=== PATIENT | female | born 2000 | race Hispanic/Latino ===

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

== ENCOUNTER 2019-01-18 20:41 | Observation (INO) | payer MEDICAID ==
[~2019-01-18] VITALS: Ht 157.5 cm; Wt 76.7 kg
[2019-01-18 21:36] LABS: APPEARANCE,URINE Clear (CLEAR); BILIRUBIN,URINE Negative (NEGATIVE); COLOR,URINE Yellow (YELLOW); GLUCOSE, URINE (UA) Negative (NEGATIVE); KETONES,URINE Negative (NEGATIVE); LEUKOCYTE ESTERASE ,URINE Small (NEGATIVE); NITRATE,URINE Negative (NEGATIVE); OCCULT BLOOD,URINE Negative (NEGATIVE); PH,URINE 6.5 (5.0-8.0); PROTEIN,URINE Negative (NEGATIVE); UROBILINOGEN,URINE 0.2 mg/dL (0.2-1.0)
[2019-01-18 21:45] LABS: BACTERIA,URINE Few /HPF (None Seen); RBC,URINE 0-1 /HPF (0-1); SQUAMOUS EPITHELIAL CELL,UR Few /HPF (0-2)
[2019-01-18 21:53] VITALS: BP 105/57
[2019-01-18] MEDS ORDERED: IRON-23 PO (21:56)
[2019-01-18] MEDS ORDERED: PREN1TAB26 PO (21:56)
== END 2019-01-18 22:20 | disposition home or self-care (01) ==
LOC: EDH 20:41 → LDH 20:42
PROVIDERS: ADMIT Obstetrics & Gynecology; ATTEND Obstetrics & Gynecology
DX: O26.893 Other specified pregnancy related conditions, third trimester (principal); R10.30 Lower abdominal pain, unspecified; Z3A.37 37 weeks gestation of pregnancy
CPT/HCPCS: 81001; 99284; G0378 ×2

== ENCOUNTER 2019-01-28 19:03 | Observation (INO) | payer MEDICAID ==
[~2019-01-28] VITALS: Ht 157.5 cm; Wt 78.9 kg
[~2019-01-28 19:03] MED LIST changes: +IRON-23 PO; +PREN1TAB26 PO
[2019-01-28] MEDS ORDERED: LACTATED RINGERS 1000ML 1,000 ML IV SCH (19:15)
[2019-01-28 19:51] LABS: APPEARANCE,URINE Clear (CLEAR); BILIRUBIN,URINE Negative (NEGATIVE); COLOR,URINE Yellow (YELLOW); GLUCOSE, URINE (UA) Negative (NEGATIVE); KETONES,URINE Negative (NEGATIVE); LEUKOCYTE ESTERASE ,URINE Moderate (NEGATIVE); NITRATE,URINE Negative (NEGATIVE); OCCULT BLOOD,URINE Negative (NEGATIVE); PH,URINE 6.5 (5.0-8.0); PROTEIN,URINE Trace mg/dL (NEGATIVE)
[2019-01-28 19:58] LABS: RBC,URINE 0-1 /HPF (0-1)
[2019-01-28 19:59] LABS: BACTERIA,URINE Few /HPF (None Seen); SQUAMOUS EPITHELIAL CELL,UR Moderate /HPF (0-2)
[2019-01-28 20:00] LABS: MUCUS,URINE Few LPF (None Seen)
[2019-01-28] MEDS ORDERED: LACTATED RINGERS 1000ML 1,000 ML IV PRN (20:37)
[2019-01-28] MEDS ORDERED: MEPERIDINE-PF 50 MG/ML SYG IM PRN (20:45)
[2019-01-28] MEDS ORDERED: PROMETHAZINE HCL 25 MG/ML 1ML AMPULE IM PRN (20:45)
[2019-01-28 20:55] LABS: HEMATOCRIT 28.6 % (36-48); MEAN CORPUSCULAR HEMOGLOBIN 24.1 pg (27.0-33.0); MEAN CORPUSCULAR HGB CONC 32.4 g/dL (32.0-36.0); MEAN CORPUSCULAR VOLUME 74.3 fL (80-100); PLATELET COUNT (AUTO) 209 K/uL (130-400); RED BLOOD CELL COUNT(AUTO) 3.85 MIL/uL (4.00-5.50); RED CELL DISTRIBUTION WIDTH 17.1 % (11.0-15.5); WHITE BLOOD COUNT (AUTO) 8.3 K/uL (4.8-10.8)
[2019-01-28 21:20] VITALS: BP 101/52
[2019-01-29 08:51] LABS: RAPID PLASMA REAGIN NONREACTIVE (NONREACTIVE)
[2019-01-31 06:10] LABS: HEPATITIS Bs ANTIGEN SCREEN P Negative (Negative)
== END 2019-01-29 09:14 | disposition home or self-care (01) ==
LOC: EDH 19:03 → LDH 19:11 → OBSVTOIN 19:11 → INTOOBSV 19:11
PROVIDERS: ADMIT Obstetrics & Gynecology; ATTEND Obstetrics & Gynecology
DX: O62.9 Abnormality of forces of labor, unspecified (principal); O99.013 Anemia complicating pregnancy, third trimester; Z3A.38 38 weeks gestation of pregnancy
CPT/HCPCS: 36415; 81001; 82120; 85027; 86592; 86701; 86850; 86900; 86901; 87340; 87390; 96372; 99284; G0378 ×12; J2175; J2550; J7120 ×2; 96360; 96361

== ENCOUNTER 2019-02-03 02:45 | Observation (INO) | payer MEDICAID ==
[~2019-02-03] VITALS: Ht 157.5 cm; Wt 78.9 kg
[2019-02-03 03:15] LABS: APPEARANCE,URINE Clear (CLEAR); BILIRUBIN,URINE Negative (NEGATIVE); COLOR,URINE Yellow (YELLOW); GLUCOSE, URINE (UA) Negative (NEGATIVE); KETONES,URINE Negative (NEGATIVE); LEUKOCYTE ESTERASE ,URINE Large (NEGATIVE); NITRATE,URINE Negative (NEGATIVE); OCCULT BLOOD,URINE Negative (NEGATIVE); PROTEIN,URINE Negative (NEGATIVE)
[2019-02-03] MEDS ORDERED: LACTATED RINGERS 1000ML 1,000 ML IV PRN (03:28)
[2019-02-03 03:33] LABS: BACTERIA,URINE Few /HPF (None Seen); RBC,URINE 0-1 /HPF (0-1)
[2019-02-03] MEDS ORDERED: LACTATED RINGERS 1000ML 1,000 ML IV ONE (03:41)
[2019-02-03 04:09] LABS: HEMATOCRIT 28.9 % (36-48); MEAN CORPUSCULAR HEMOGLOBIN 23.9 pg (27.0-33.0); MEAN CORPUSCULAR HGB CONC 32.6 g/dL (32.0-36.0); MEAN CORPUSCULAR VOLUME 73.4 fL (80-100); NUCLEATED RED BLOOD CELLS 0.1 % (0.0-0.19); PLATELET COUNT (AUTO) 216 K/uL (130-400); RED BLOOD CELL COUNT(AUTO) 3.94 MIL/uL (4.00-5.50); RED CELL DISTRIBUTION WIDTH 16.5 % (11.0-15.5); WHITE BLOOD COUNT (AUTO) 7.2 K/uL (4.8-10.8)
[2019-02-03 04:39] VITALS: BP 121/56
[2019-02-04 08:12] LABS: HEPATITIS Bs ANTIGEN SCREEN P Negative (Negative)
== END 2019-02-03 07:40 | disposition home or self-care (01) ==
LOC: EDH 02:45 → INTOOBSV 02:46 → LDH 02:46 → OBSVTOIN 02:46
PROVIDERS: ADMIT Obstetrics & Gynecology; ATTEND Obstetrics & Gynecology
DX: O62.9 Abnormality of forces of labor, unspecified (principal); O99.013 Anemia complicating pregnancy, third trimester; Z3A.39 39 weeks gestation of pregnancy
CPT/HCPCS: 36415; 81001; 85027; 86592; 86850; 86900; 86901; 87340; 99284; G0378; J7120 ×2; 96360; 96361

== ENCOUNTER 2020-06-19 10:45 | Emergency (ER) | payer MEDICAID | END 2020-06-19 11:49 | disposition home or self-care (01) | LOC: EDH 10:45 | DX: S29.012A Strain of muscle and tendon of back wall of thorax, initial encounter (principal); Z72.0 Tobacco use; X58.XXXA Exposure to other specified factors, initial encounter; Y93.89 Activity, other specified; Y92.89 Other specified places as the place of occurrence of the external cause; Y99.8 Other external cause status ==

== ENCOUNTER 2022-05-15 20:58 | Observation (INO) | payer MEDICAID ==
[~2022-05-15] VITALS: Ht 157.5 cm; Wt 81.2 kg
[2022-05-15 21:06] VITALS: BP 127/62
[2022-05-15 21:39] LABS: APPEARANCE,URINE CLEAR (CLEAR); BILIRUBIN,URINE NEGATIVE (NEGATIVE); COLOR,URINE LIGHT-YELLOW (YELLOW); GLUCOSE, URINE (UA) NEGATIVE (NEGATIVE); KETONES,URINE NEGATIVE (NEGATIVE); LEUKOCYTE ESTERASE ,URINE NEGATIVE Leu/uL (NEGATIVE); NITRATE,URINE NEGATIVE (NEGATIVE); OCCULT BLOOD,URINE NEGATIVE (NEGATIVE); PH,URINE 7.5 (5.0-8.0); PROTEIN,URINE NEGATIVE (NEGATIVE); UROBILINOGEN,URINE 0.2 mg/dL (0.2-1.0)
[2022-05-15 21:47] LABS: AMPHET/METH SCREEN,URINE NEGATIVE (NEGATIVE); BARBITURATE SCREEN, URINE NEGATIVE (NEGATIVE); BENZODIAZEPINES SCREEN,URINE NEGATIVE (NEGATIVE); CANNABINOID SCREEN,URINE NEGATIVE (NEGATIVE); COCAINE SCREEN,URINE NEGATIVE (NEGATIVE); OPIATE SCREEN,URINE NEGATIVE (NEGATIVE); PHENCYCLIDINE SCREEN,URINE NEGATIVE (NEGATIVE)
== END 2022-05-15 22:50 | disposition home or self-care (01) ==
LOC: EDH 20:58 → LDH 21:11
PROVIDERS: ADMIT Obstetrics & Gynecology; ATTEND Obstetrics & Gynecology
DX: O42.913 Preterm premature rupture of membranes, unspecified as to length of time between rupture and onset of labor, third trimester (principal); Z3A.30 30 weeks gestation of pregnancy; Z87.891 Personal history of nicotine dependence
CPT/HCPCS: 76805; 80305; 81003; G0379; G0378

== ENCOUNTER 2022-07-04 12:58 | Observation (INO) | payer MEDICAID ==
[~2022-07-04] VITALS: Ht 157.5 cm; Wt 86.6 kg
[2022-07-04 14:14] VITALS: BP 121/64
== END 2022-07-04 14:16 | disposition home or self-care (01) ==
LOC: EDH 12:58 → LDH 13:24
PROVIDERS: ADMIT Obstetrics & Gynecology; ATTEND Obstetrics & Gynecology
DX: O62.9 Abnormality of forces of labor, unspecified (principal); Z3A.37 37 weeks gestation of pregnancy
CPT/HCPCS: 59025; G0378; G0379

== ENCOUNTER 2022-07-08 17:10 | Observation (INO) | payer MEDICAID ==
[~2022-07-08] VITALS: Ht 157.5 cm; Wt 81.6 kg
[2022-07-08 17:12] VITALS: BP 147/79
[2022-07-08 17:49] LABS: APPEARANCE,URINE CLOUDY (CLEAR); BILIRUBIN,URINE NEGATIVE (NEGATIVE); COLOR,URINE YELLOW (YELLOW); GLUCOSE, URINE (UA) NEGATIVE (NEGATIVE); KETONES,URINE NEGATIVE (NEGATIVE); LEUKOCYTE ESTERASE ,URINE 250 Leu/uL (NEGATIVE); NITRATE,URINE NEGATIVE (NEGATIVE); OCCULT BLOOD,URINE NEGATIVE (NEGATIVE); PROTEIN,URINE 20 mg/dL (NEGATIVE); UROBILINOGEN,URINE 0.2 mg/dL (0.2-1.0)
[2022-07-08 17:53] LABS: BACTERIA,URINE RARE /HPF (None Seen); MUCUS,URINE RARE LPF (None Seen); SQUAMOUS EPITHELIAL CELL,UR MANY /HPF (0-2)
[2022-07-08] MEDS ORDERED: LACTATED RINGERS 1000ML 1,000 ML IV SCH (19:00)
== END 2022-07-08 20:30 | disposition home or self-care (01) ==
LOC: EDH 17:10 → LDH 17:11
PROVIDERS: ADMIT Obstetrics & Gynecology; ATTEND Obstetrics & Gynecology
DX: O26.813 Pregnancy related exhaustion and fatigue, third trimester (principal); O26.893 Other specified pregnancy related conditions, third trimester; R10.9 Unspecified abdominal pain; O99.891 Other specified diseases and conditions complicating pregnancy; M54.9 Dorsalgia, unspecified; Z3A.38 38 weeks gestation of pregnancy; Z87.891 Personal history of nicotine dependence
CPT/HCPCS: 96360; 85018; 86850; 86900; 86901; 87088; 81001; 36415; G0378 ×2; J7120 ×2

== ENCOUNTER 2023-07-23 09:38 | Inpatient (IN) | payer MEDICAID ==
[~2023-07-23] VITALS: Ht 157.5 cm; Wt 67.9 kg
[~2023-07-23 09:38] MED LIST changes: +FERR-82 PO; -IBUP-2070 PO; -IRON-10 PO; -IRON-23 PO; -PNV91TAB6 PO; +PREN-196 PO; -PREN1TAB26 PO
[2023-07-23 10:05] LABS: HCG,QUALITATIVE URINE POSITIVE (NEGATIVE)
[2023-07-23 10:10] LABS: MEAN CORPUSCULAR HEMOGLOBIN 26.8 pg (27.0-33.0); MEAN CORPUSCULAR HGB CONC 32.4 g/dL (32.0-36.0); MEAN CORPUSCULAR VOLUME 82.7 fL (79-99); RED BLOOD CELL COUNT(AUTO) 5.08 MIL/uL (4.00-5.50); RED CELL DISTRIBUTION WIDTH 13.6 % (11.0-15.5); WHITE BLOOD COUNT (AUTO) 8.6 K/uL (4.8-10.8)
[2023-07-23 10:12] LABS: APPEARANCE,URINE CLEAR (CLEAR); BILIRUBIN,URINE SMALL mg/dL (NEGATIVE); COLOR,URINE YELLOW (YELLOW); GLUCOSE, URINE (UA) NEGATIVE (NEGATIVE); KETONES,URINE 40 mg/dL (NEGATIVE); LEUKOCYTE ESTERASE ,URINE TRACE Leu/uL (NEGATIVE); NITRATE,URINE NEGATIVE (NEGATIVE); OCCULT BLOOD,URINE MODERATE (NEGATIVE); PROTEIN,URINE 100 mg/dL (NEGATIVE); UROBILINOGEN,URINE 0.2 mg/dL (0.2-1.0)
[2023-07-23] MEDS: 0.9%NACL 1000ML 1,503 ML IV ONE (10:15)
[2023-07-23] MEDS: CEFTRIAXONE 2GM VIAL IVPB ONE (10:15)
[2023-07-23 10:16] LABS: ADD UA MICROSCOPIC YES
[2023-07-23 10:18] LABS: CREATININE 0.7 mg/dL (0.5-1.0); POTASSIUM 3.5 mmol/L (3.5-5.1)
[2023-07-23 10:26] LABS: BACTERIA,URINE FEW /HPF (None Seen); MUCUS,URINE RARE LPF (None Seen); SQUAMOUS EPITHELIAL CELL,UR MANY /HPF (0-2)
[2023-07-23 10:58] LABS: SARS-CoV-2, RNA, NAAT NEGATIVE SARS CoV-2 (NEGATIVE)
[2023-07-23 11:12] LABS: RAPID GROUP A STREP negative (NEGATIVE)
[2023-07-23] MEDS: METRONIDAZOLE 500MG/100ML BAG 100 ML IVPB SCH ×2 (11:13→20:50)
[2023-07-23] MEDS: METRONIDAZOLE 500MG/100ML BAG 100 ML ONE (11:13)
[2023-07-23 11:23] LABS: INFLUENZA TYPE A Negative For Type A (NEGATIVE); INFLUENZA TYPE B Negative For Type B (NEGATIVE)
[2023-07-23] MEDS: ACETAMINOPHEN 325 MG TAB PO ONE (13:07)
[2023-07-23] MEDS ORDERED: ONDANSETRON 4MG INJ IVP PRN (14:00)
[2023-07-23 14:03] LABS: MAGNESIUM 1.9 mg/dL (1.80-2.40)
[2023-07-23 14:07] VITALS: TEMP 99.1
[2023-07-23 14:08] LABS: INR <= 0.93 (0.85-1.15); PROTHROMBIN TIME 10.7 SEC (9.6-11.6)
[2023-07-23 14:10] LABS: PARTIAL THROMBOPLASTIN TIME 28.6 SEC (26.3-35.5)
[2023-07-23] MEDS: 0.9%NACL 1000ML 1,000 ML IV SCH (14:35)
[2023-07-23] MEDS: THIAMINE HCL 100 MG/ML 2ML VIAL IVP SCH (14:35)
[2023-07-23 15:00] LABS: HEMATOCRIT 34.5 % (36-48)
[2023-07-23] MEDS: PRENATAL VITAMIN RX TABLET PO SCH (17:41)
[2023-07-23] MEDS: ONDANSETRON 4MG INJ IVP PRN (17:47)
[2023-07-23] MEDS: FAMOTIDINE 20MG VIAL IV SCH (20:50)
[2023-07-23] MEDS: PYRIDOXINE HCL 50 MG TABLET PO SCH (20:51)
[2023-07-23] MEDS: ACETAMINOPHEN 325 MG TAB PO PRN (20:52)
[2023-07-23 22:55] VITALS: BP 100/57; PULSE 77; RESP 14; O2SAT 99
[2023-07-24 03:00] VITALS: BP 99/60; PULSE 88; RESP 16
[2023-07-24 05:22] LABS: BASOPHILS # (AUTO) 0.02 K/uL (0.00-0.20); BASOPHILS % (AUTO) 0.4 % (0.0-5.0); EOSINOPHILS # (AUTO) 0.01 K/uL (0.00-0.70); EOSINOPHILS % (AUTO) 0.2 % (0.0-8.0); HEMATOCRIT 32.8 % (36-48); IMMATURE GRANULOCYTE ABSOLUTE 0.01 K/uL (0-1); LYMPHOCYTES # (AUTO) 0.5 K/uL (1.0-4.8); LYMPHOCYTES % (AUTO) 9.5 % (21.0-51.0); MEAN CORPUSCULAR HEMOGLOBIN 26.6 pg (27.0-33.0); MEAN CORPUSCULAR HGB CONC 32.3 g/dL (32.0-36.0); MEAN CORPUSCULAR VOLUME 82.4 fL (79-99); MONOCYTES # (AUTO) 0.3 K/uL (0.1-1.0); MONOCYTES % (AUTO) 5.5 % (3.0-13.0); NEUTROPHILS # (AUTO) 4.8 K/uL (1.8-7.7); NEUTROPHILS % (AUTO) 84.2 % (40.0-77.0); PLATELET COUNT (AUTO) 175 K/uL (130-400); RED BLOOD CELL COUNT(AUTO) 3.98 MIL/uL (4.00-5.50); RED CELL DISTRIBUTION WIDTH 13.9 % (11.0-15.5); WHITE BLOOD COUNT (AUTO) 5.7 K/uL (4.8-10.8)
[2023-07-24 05:46] LABS: ALBUMIN 2.7 g/dL (3.5-5.0); BILIRUBIN,TOTAL 0.4 mg/dL (0.2-1.0); CREATININE 0.6 mg/dL (0.5-1.0); MAGNESIUM 1.8 mg/dL (1.80-2.40); POTASSIUM 3.2 mmol/L (3.5-5.1); TOTAL PROTEIN, SERUM 6.4 g/dL (6.0-8.3)
[2023-07-24 07:45] VITALS: O2SAT 99
[2023-07-24 08:00] VITALS: BP 94/57; PULSE 79; RESP 17
[2023-07-24] MEDS: CEFTRIAXONE 2GM VIAL IVPB SCH (09:38)
[2023-07-24 11:09] LABS: AMPHET/METH SCREEN,URINE NEGATIVE (NEGATIVE); BARBITURATE SCREEN, URINE NEGATIVE (NEGATIVE); BENZODIAZEPINES SCREEN,URINE NEGATIVE (NEGATIVE); CANNABINOID SCREEN,URINE POSITIVE (NEGATIVE); COCAINE SCREEN,URINE NEGATIVE (NEGATIVE); OPIATE SCREEN,URINE NEGATIVE (NEGATIVE); PHENCYCLIDINE SCREEN,URINE NEGATIVE (NEGATIVE)
[2023-07-24] MEDS ORDERED: POTASSIUM CHLORIDE 20MEQ/100ML 100 ML IV PRN ×2 (11:30)
[2023-07-24] MEDS ORDERED: MAGNESIUM 2GM PREMIX 50ML 50 ML IV PRN ×2 (11:30)
[2023-07-24] MEDS ORDERED: POTASSIUM CHLORIDE 10% ELIXIR 20 MEQ/15 ML UDCUP PO PRN ×2 (11:30)
[2023-07-24] MEDS ORDERED: KCL 20 MEQ ERTAB PO PRN ×2 (11:30)
[2023-07-24 12:00] VITALS: BP 113/64; PULSE 60; RESP 17
[2023-07-24] MEDS ORDERED: CEPH500C2 PO (14:02)
[2023-07-25 17:11] LABS: C DIFFICILE TOXIN A/B Not Detected (Not Detected); ENTEROAGGREGATIVE ECOLI Not Detected (Not Detected); GIARDIA LAMBLIA Not Detected (Not Detected); PLESIOMONAS SHIGELOIDES Not Detected (Not Detected); SAPOVIRUS Not Detected (Not Detected); SHIGELLA/ENTEROINVASIVE E COLI Detected (Not Detected); VIBRIO Not Detected (Not Detected); VIBRIO CHOLERAE Not Detected (Not Detected)
[2023-07-26] MEDS ORDERED: CEFP200T14 PO (12:59)
== END 2023-07-24 16:05 | disposition home or self-care (01) | DRG 566 ==
LOC: EDH 09:38 → 3CH 09:39 → UNDOADMIN 09:39 → EDHIP 09:39 → UNDOADMIN 13:41 → EDHIP 13:41 → 3AH 22:55 → UNDOADMIN 22:55 → 3CH 22:55 → EDHIP 22:55
PROVIDERS: ADMIT Internal Medicine; ATTEND Internal Medicine
DX: O98.811 Other maternal infectious and parasitic diseases complicating pregnancy, first trimester (principal); A41.9 Sepsis, unspecified organism; O23.41 Unspecified infection of urinary tract in pregnancy, first trimester; A04.9 Bacterial intestinal infection, unspecified; E86.1 Hypovolemia; E87.1 Hypo-osmolality and hyponatremia; N39.0 Urinary tract infection, site not specified; Z20.822 Contact with and (suspected) exposure to COVID-19; O99.611 Diseases of the digestive system complicating pregnancy, first trimester; O99.281 Endocrine, nutritional and metabolic diseases complicating pregnancy, first trimester; O21.9 Vomiting of pregnancy, unspecified; E87.6 Hypokalemia; O46.91 Antepartum hemorrhage, unspecified, first trimester; Z3A.08 8 weeks gestation of pregnancy; Z80.0 Family history of malignant neoplasm of digestive organs
CPT/HCPCS: 36415; 76700; 76801; 80048; 80053; 80305; 81001; 81025; 82270; 83630; 83690; 83735; 84145; 84702; 85014; 85018; 85025; 85027; 85610; 85651; 85730; 86140; 86850; 86900; 86901; 87040; 87046; 87077; 87088; 87177; 87186; 87324; 87507; 87635; 87804; 87880; G0378; J0696; J2405; J3411; J3490; J7030

== ENCOUNTER 2023-08-26 23:27 | Emergency (ER) | payer MEDICAID ==
[~2023-08-26] VITALS: Ht 157.5 cm; Wt 68.0 kg
[~2023-08-26 23:27] MED LIST changes: +CEFP200T14 PO
[2023-08-27] MEDS: ACETAMINOPHEN 325 MG TAB PO ONE (00:42)
[2023-08-27 02:04] VITALS: BP 110/74; PULSE 80; RESP 18; O2SAT 99
== END 2023-08-27 02:09 | disposition home or self-care (01) ==
LOC: EDH 23:27
DX: O20.9 Hemorrhage in early pregnancy, unspecified (principal); Z3A.12 12 weeks gestation of pregnancy
CPT/HCPCS: 76801

== ENCOUNTER 2023-09-10 11:30 | Emergency (ER) | payer MEDICAID ==
[~2023-09-10] VITALS: Ht 157.5 cm; Wt 68.0 kg
[2023-09-10 12:45] LABS: BASOPHILS # (AUTO) 0.02 K/uL (0.00-0.20); BASOPHILS % (AUTO) 0.4 % (0.0-5.0); EOSINOPHILS # (AUTO) 0.27 K/uL (0.00-0.70); EOSINOPHILS % (AUTO) 4.8 % (0.0-8.0); HEMATOCRIT 32.2 % (36-48); IMMATURE GRANULOCYTE ABSOLUTE 0.01 K/uL (0-1); LYMPHOCYTES # (AUTO) 1.2 K/uL (1.0-4.8); LYMPHOCYTES % (AUTO) 20.8 % (21.0-51.0); MEAN CORPUSCULAR HGB CONC 33.2 g/dL (32.0-36.0); MEAN CORPUSCULAR VOLUME 81.3 fL (79-99); MONOCYTES # (AUTO) 0.3 K/uL (0.1-1.0); MONOCYTES % (AUTO) 5.3 % (3.0-13.0); NEUTROPHILS # (AUTO) 3.9 K/uL (1.8-7.7); NEUTROPHILS % (AUTO) 68.5 % (40.0-77.0); PLATELET COUNT (AUTO) 198 K/uL (130-400); RED BLOOD CELL COUNT(AUTO) 3.96 MIL/uL (4.00-5.50); RED CELL DISTRIBUTION WIDTH 13.9 % (11.0-15.5); WHITE BLOOD COUNT (AUTO) 5.7 K/uL (4.8-10.8)
[2023-09-10 12:56] LABS: CREATININE 0.6 mg/dL (0.5-1.0); POTASSIUM 3.3 mmol/L (3.5-5.1)
[2023-09-10] MEDS: LACTATED RINGERS 1000ML 1,000 ML IV STA (13:02)
[2023-09-10] MEDS: ACETAMINOPHEN 500 MG TABLET PO ONE (13:17)
[2023-09-10] MEDS: ACETAMINOPHEN 500 MG TABLET ONE (13:21)
[2023-09-10 13:22] LABS: ALBUMIN 3.1 g/dL (3.5-5.0); BILIRUBIN,TOTAL 0.3 mg/dL (0.2-1.0); TOTAL PROTEIN, SERUM 7.2 g/dL (6.0-8.3)
[2023-09-10] MEDS: POTASSIUM BICARB/CIT AC 25 MEQ TABLET.EFF PO ONE (13:52)
[2023-09-10 16:11] VITALS: BP 94/58; PULSE 71; RESP 16; O2SAT 98
[2023-09-10] MEDS ORDERED: ACET-66 PO (16:46)
== END 2023-09-10 17:01 | disposition home or self-care (01) ==
LOC: EDH 11:30
DX: O46.92 Antepartum hemorrhage, unspecified, second trimester (principal); O26.892 Other specified pregnancy related conditions, second trimester; R10.2 Pelvic and perineal pain; Z3A.15 15 weeks gestation of pregnancy
CPT/HCPCS: 99284; 96360; 96361; 76801; 80053; 84703; 84702; 85025; 86850; 86900; 86901; 36415; J7120

== ENCOUNTER 2024-01-16 10:32 | Observation (INO) | payer MEDICAID ==
[~2024-01-16] VITALS: Ht 157.5 cm; Wt 77.1 kg
[~2024-01-16 10:32] MED LIST changes: +ACET-66 PO
[2024-01-16 11:11] LABS: APPEARANCE,URINE CLOUDY (CLEAR); BILIRUBIN,URINE NEGATIVE (NEGATIVE); COLOR,URINE LIGHT-YELLOW (YELLOW); GLUCOSE, URINE (UA) NEGATIVE (NEGATIVE); KETONES,URINE NEGATIVE (NEGATIVE); LEUKOCYTE ESTERASE ,URINE 500 Leu/uL (NEGATIVE); NITRATE,URINE NEGATIVE (NEGATIVE); OCCULT BLOOD,URINE NEGATIVE (NEGATIVE); PH,URINE 6.5 (5.0-8.0); PROTEIN,URINE 10 mg/dL (NEGATIVE); UROBILINOGEN,URINE 0.2 mg/dL (0.2-1.0)
[2024-01-16 11:20] LABS: ADD UA MICROSCOPIC YES
[2024-01-16 11:22] LABS: BACTERIA,URINE FEW /HPF (None Seen); MUCUS,URINE RARE LPF (None Seen); OTHER CASTS, URINE 1 /LPF (None Seen); SQUAMOUS EPITHELIAL CELL,UR MANY /HPF (0-2); WBC,URINE 26-50 /HPF (0-1)
[2024-01-16 11:41] LABS: AMPHET/METH SCREEN,URINE NEGATIVE (NEGATIVE); BARBITURATE SCREEN, URINE NEGATIVE (NEGATIVE); BENZODIAZEPINES SCREEN,URINE NEGATIVE (NEGATIVE); CANNABINOID SCREEN,URINE NEGATIVE (NEGATIVE); COCAINE SCREEN,URINE NEGATIVE (NEGATIVE); OPIATE SCREEN,URINE NEGATIVE (NEGATIVE); PHENCYCLIDINE SCREEN,URINE NEGATIVE (NEGATIVE)
[2024-01-16 11:50] LABS: CREATININE 0.7 mg/dL (0.5-1.0); POTASSIUM 3.4 mmol/L (3.5-5.1)
[2024-01-16 11:54] LABS: ALBUMIN 2.6 g/dL (3.5-5.0); BILIRUBIN,TOTAL 0.3 mg/dL (0.2-1.0); TOTAL PROTEIN, SERUM 6.6 g/dL (6.0-8.3)
[2024-01-16] MEDS: LACTATED RINGERS 1000ML 1,000 ML IV PRN (12:01)
[2024-01-16 12:02] LABS: BASOPHILS # (AUTO) 0.03 K/uL (0.00-0.20); BASOPHILS % (AUTO) 0.4 % (0.0-5.0); EOSINOPHILS # (AUTO) 0.15 K/uL (0.00-0.70); EOSINOPHILS % (AUTO) 2.1 % (0.0-8.0); IMMATURE GRANULOCYTE ABSOLUTE 0.06 K/uL (0-1); LYMPHOCYTES # (AUTO) 1.3 K/uL (1.0-4.8); LYMPHOCYTES % (AUTO) 17.7 % (21.0-51.0); MEAN CORPUSCULAR HGB CONC 30.4 g/dL (32.0-36.0); MEAN CORPUSCULAR VOLUME 75.9 fL (79-99); MONOCYTES # (AUTO) 0.3 K/uL (0.1-1.0); MONOCYTES % (AUTO) 4.7 % (3.0-13.0); NEUTROPHILS # (AUTO) 5.2 K/uL (1.8-7.7); NEUTROPHILS % (AUTO) 74.2 % (40.0-77.0); PLATELET COUNT (AUTO) 198 K/uL (130-400); RED BLOOD CELL COUNT(AUTO) 3.69 MIL/uL (4.00-5.50); RED CELL DISTRIBUTION WIDTH 15.8 % (11.0-15.5); WHITE BLOOD COUNT (AUTO) 7.1 K/uL (4.8-10.8)
[2024-01-16] MEDS: PoTASSium chloRIDE 20MEQ ER 20 MEQ ERTAB PO ONE (12:53)
== END 2024-01-16 13:20 | disposition home or self-care (01) ==
LOC: LDH 10:32
PROVIDERS: ADMIT Obstetrics & Gynecology; ATTEND Obstetrics & Gynecology
DX: O26.893 Other specified pregnancy related conditions, third trimester (principal); R29.898 Other symptoms and signs involving the musculoskeletal system; M79.89 Other specified soft tissue disorders; R60.0 Localized edema; O99.323 Drug use complicating pregnancy, third trimester; F14.90 Cocaine use, unspecified, uncomplicated; F12.90 Cannabis use, unspecified, uncomplicated; Z3A.33 33 weeks gestation of pregnancy; Z87.891 Personal history of nicotine dependence; Z79.899 Other long term (current) drug therapy
CPT/HCPCS: 59025; 96360; 96361; 80053; 80305; 85025; 87086; 81001; 36415; 93971; G0378 ×2; G0379; J7120 ×2

== ENCOUNTER 2024-01-28 09:46 | Observation (INO) | payer MEDICAID ==
[~2024-01-28] VITALS: Ht 157.5 cm; Wt 77.1 kg
[2024-01-28 09:50] VITALS: BP 121/56; PULSE 68; RESP 18; TEMP 98.6
[2024-01-28 10:11] LABS: APPEARANCE,URINE CLEAR (CLEAR); BILIRUBIN,URINE NEGATIVE (NEGATIVE); COLOR,URINE LIGHT-YELLOW (YELLOW); GLUCOSE, URINE (UA) 50 mg/dL (NEGATIVE); KETONES,URINE NEGATIVE (NEGATIVE); LEUKOCYTE ESTERASE ,URINE 75 Leu/uL (NEGATIVE); NITRATE,URINE NEGATIVE (NEGATIVE); OCCULT BLOOD,URINE NEGATIVE (NEGATIVE); PH,URINE 6.5 (5.0-8.0); PROTEIN,URINE 20 mg/dL (NEGATIVE); UROBILINOGEN,URINE 0.2 mg/dL (0.2-1.0)
[2024-01-28 10:13] LABS: ADD UA MICROSCOPIC YES
[2024-01-28 10:19] LABS: AMPHET/METH SCREEN,URINE NEGATIVE (NEGATIVE); BARBITURATE SCREEN, URINE NEGATIVE (NEGATIVE); BENZODIAZEPINES SCREEN,URINE NEGATIVE (NEGATIVE); CANNABINOID SCREEN,URINE NEGATIVE (NEGATIVE); COCAINE SCREEN,URINE NEGATIVE (NEGATIVE); OPIATE SCREEN,URINE NEGATIVE (NEGATIVE); PHENCYCLIDINE SCREEN,URINE NEGATIVE (NEGATIVE)
[2024-01-28] MEDS: LACTATED RINGERS 1000ML IV PRN (10:30)
[2024-01-28 10:57] LABS: BACTERIA,URINE RARE /HPF (None Seen); MUCUS,URINE RARE LPF (None Seen); RBC,URINE 0-1 /HPF (0-1); SQUAMOUS EPITHELIAL CELL,UR MOD /HPF (0-2)
== END 2024-01-28 12:30 | disposition home or self-care (01) ==
LOC: EDH 09:46 → LDH 09:47
PROVIDERS: ADMIT Obstetrics & Gynecology; ATTEND Obstetrics & Gynecology
DX: O26.893 Other specified pregnancy related conditions, third trimester (principal); R10.9 Unspecified abdominal pain; O99.323 Drug use complicating pregnancy, third trimester; F12.90 Cannabis use, unspecified, uncomplicated; F14.10 Cocaine abuse, uncomplicated; Z3A.35 35 weeks gestation of pregnancy; Z87.891 Personal history of nicotine dependence; Z79.899 Other long term (current) drug therapy
CPT/HCPCS: 96361; 59025; 96372 ×2; 96360; 80305; 87086; 81001; G0378 ×3; G0379; J3105

== ENCOUNTER 2024-02-15 09:33 | Inpatient (IN) | payer MEDICAID ==
[~2024-02-15] VITALS: Ht 157.5 cm; Wt 77.1 kg
[2024-02-15] MEDS: LACTATED RINGERS 1000ML 1,000 ML IV SCH (10:13)
[2024-02-15 10:27] LABS: APPEARANCE,URINE CLEAR (CLEAR); BILIRUBIN,URINE NEGATIVE (NEGATIVE); COLOR,URINE LIGHT-YELLOW (YELLOW); GLUCOSE, URINE (UA) NEGATIVE (NEGATIVE); KETONES,URINE NEGATIVE (NEGATIVE); LEUKOCYTE ESTERASE ,URINE NEGATIVE Leu/uL (NEGATIVE); NITRATE,URINE NEGATIVE (NEGATIVE); OCCULT BLOOD,URINE NEGATIVE (NEGATIVE); PH,URINE 6.5 (5.0-8.0); PROTEIN,URINE NEGATIVE (NEGATIVE); UROBILINOGEN,URINE 0.2 mg/dL (0.2-1.0)
[2024-02-15 10:29] LABS: ADD UA MICROSCOPIC NO
[2024-02-15 10:35] LABS: AMPHET/METH SCREEN,URINE NEGATIVE (NEGATIVE); BARBITURATE SCREEN, URINE NEGATIVE (NEGATIVE); BENZODIAZEPINES SCREEN,URINE NEGATIVE (NEGATIVE); CANNABINOID SCREEN,URINE NEGATIVE (NEGATIVE); COCAINE SCREEN,URINE NEGATIVE (NEGATIVE); OPIATE SCREEN,URINE NEGATIVE (NEGATIVE); PHENCYCLIDINE SCREEN,URINE NEGATIVE (NEGATIVE)
[2024-02-15 11:42] LABS: HEMATOCRIT 29.5 % (36-48); MEAN CORPUSCULAR HEMOGLOBIN 21.8 pg (27.0-33.0); MEAN CORPUSCULAR HGB CONC 29.8 g/dL (32.0-36.0); MEAN CORPUSCULAR VOLUME 73.2 fL (79-99); PLATELET COUNT (AUTO) 222 K/uL (130-400); RED BLOOD CELL COUNT(AUTO) 4.03 MIL/uL (4.00-5.50); RED CELL DISTRIBUTION WIDTH 16.4 % (11.0-15.5); WHITE BLOOD COUNT (AUTO) 7.1 K/uL (4.8-10.8)
[2024-02-15] MEDS ORDERED: LIDOCAINE HCL 1% 20 ML VIAL ONE (11:43)
[2024-02-15] MEDS ORDERED: PROMETHAZINE HCL 25 MG/ML 1ML AMPULE IM PRN (12:00)
[2024-02-15] MEDS ORDERED: ePHEDrine SULFate 50 MG/ML AMPULE IVP PRN (12:00)
[2024-02-15] MEDS ORDERED: NALoxone HCL 0.4 MG/1 ML ML IV PRN (12:00)
[2024-02-15] MEDS ORDERED: MEPERIDINE-PF 50 MG/ML SYG IVP PRN (12:00)
[2024-02-15] MEDS ORDERED: LACTATED RINGERS 500 ML 500 ML IV PRN (12:00)
[2024-02-15] MEDS ORDERED: MISOPROSTOL 200 MCG TABLET ONE (12:20)
[2024-02-15] MEDS ORDERED: CARBOPROST TROMETHAMINE 250 MCG/ML AMP IM PRN (12:30)
[2024-02-15] MEDS ORDERED: TRANEXAMIC ACID 1000MG/10ML IV PRN (12:30)
[2024-02-15] MEDS: LACTATED RINGERS 1000ML 1,000 ML IV PRN (12:57)
[2024-02-15] MEDS ORDERED: FENTanyl CITRate PF 50 MCG/1 ML 2ML VIAL ONE (13:12)
[2024-02-15] MEDS ORDERED: LIDOCAINE 2%-EPI 1:200,000 20 ML VIAL IJ ONE (20:39)
[2024-02-15] MEDS: MISOPROSTOL 200 MCG TABLET PR PRN (22:57)
[2024-02-15] MEDS ORDERED: DIPH,PERTUSS(ACELL),TET VAC/PF 0.5 ML VIAL IM PRN (23:00)
[2024-02-15] MEDS ORDERED: LANOLIN 30GM OINTMENT TP PRN (23:00)
[2024-02-15] MEDS ORDERED: MEASLES/MUMPS/RUBELLA VACCINE, LIVE 0.5 ML/VIAL SQ PRN (23:00)
[2024-02-15] MEDS ORDERED: WITCH HAZEL 1 PAD TP PRN (23:00)
[2024-02-15] MEDS ORDERED: BENZOCAINE/LANOLIN/ALOE VERA 60 ML AEROSOL TP PRN (23:00)
[2024-02-16] VITALS (7 sets, daily range): BP systolic 96–119; BP diastolic 53–73; PULSE 67–82; RESP 18–20; TEMP 97.9–98.9
[2024-02-16] MEDS: acetaMINOPHEN 325 MG TAB PO PRN (03:19)
[2024-02-16 07:26] LABS: HEMATOCRIT 29.4 % (36-48); MEAN CORPUSCULAR HEMOGLOBIN 21.9 pg (27.0-33.0); MEAN CORPUSCULAR HGB CONC 29.6 g/dL (32.0-36.0); MEAN CORPUSCULAR VOLUME 74.1 fL (79-99); RED BLOOD CELL COUNT(AUTO) 3.97 MIL/uL (4.00-5.50); RED CELL DISTRIBUTION WIDTH 16.2 % (11.0-15.5); WHITE BLOOD COUNT (AUTO) 11.7 K/uL (4.8-10.8)
[2024-02-16] MEDS: doCUSate SODIUM 100 MG CAP PO SCH (08:47)
[2024-02-16] MEDS: ibuPROFEN 600 MG TABLET PO PRN (08:47)
[2024-02-16] MEDS: acetaMINOPHEN WITH coDEINE 1 TAB TAB PO PRN (20:51)
[2024-02-17 03:38] VITALS: BP 96/63; PULSE 76; RESP 20; TEMP 98.1
[2024-02-17 07:15] VITALS: BP 105/63; PULSE 69; RESP 20; TEMP 97.9
[2024-02-17 07:28] VITALS: BP 111/61; PULSE 83; RESP 20; TEMP 98.4
== END 2024-02-17 07:15 | disposition home or self-care (01) | DRG 560 ==
LOC: EDH 09:33 → LDH 09:34 → OBSVTOIN 09:34 → WSH 02-16 09:41
PROVIDERS: ADMIT Obstetrics & Gynecology; ATTEND Obstetrics & Gynecology
PROC: 10E0XZZ Delivery of Products of Conception, External Approach (ICD-10-PCS; principal; 2024-02-15)
PROC: 3E0R3BZ Introduction of Anesthetic Agent into Spinal Canal, Percutaneous Approach (ICD-10-PCS; 2024-02-15)
PROC: 00HU33Z Insertion of Infusion Device into Spinal Canal, Percutaneous Approach (ICD-10-PCS; 2024-02-15)
PROC: 10907ZC Drainage of Amniotic Fluid, Therapeutic from Products of Conception, Via Natural or Artificial Opening (ICD-10-PCS; 2024-02-15)
DX: O99.02 Anemia complicating childbirth (principal); Z37.0 Single live birth; O66.0 Obstructed labor due to shoulder dystocia; Z3A.38 38 weeks gestation of pregnancy
CPT/HCPCS: 36415; 76805; 80305; 81003; 85027; 86592; 86850; 86900; 86901; 87340; A4314; G0378; J2795; J3010; J3490; J7120